=== PATIENT | male | born 1975 | race Two or more races ===

== ENCOUNTER → 2016-10-03 | Outpatient (CLI) | payer MEDICAID | LOC: RAD 13:09 | PROVIDERS: ATTEND Internal Medicine Critical Care Medicine | DX: R05 Cough (principal) | CPT/HCPCS: 71250 ==

== ENCOUNTER → 2017-02-16 | Outpatient (CLI) | payer MEDICAID ==
--- NOTE | 2017-02-16 12:35 | RADIOLOGY REPORT (SQ) ---
EXAM DESCRIPTION: U/S SCROTUM W/DOPPLER COMPLETED DATE/TIME: 02/16/2017 12:13 pm REASON FOR STUDY: SCROTAL MASS N50.9 DISORDER OF MALE GENITAL ORGANS, UNSPECIFIED COMPARISON: Abdominal and pelvic CT scan dated June 2016 TECHNIQUE: Static and realtime haas scale imaging of the scrotum and testes. Selected color Doppler and spectral images recorded to document blood flow. LIMITATIONS: None. FINDINGS: RIGHT: TESTICLE: Normal size. Normal echotexture. Normal blood flow. No mass. EPIDIDYMIS: Normal. HYDROCELE OR VARICOCELE: No. HERNIA OR EXTRA-TESTICULAR MASS: No. OTHER: No other significant finding. LEFT: TESTICLE: Normal size. Normal echotexture. Normal blood flow. No mass. EPIDIDYMIS: Normal. HYDROCELE OR VARICOCELE: A complex multilocular mass is identified superior to the testicle which may represent a complicated hydrocele. This could also be related to the large left inguinal hernia con taining fat identified on the previous CT scan. Other etiologies cannot be completely excluded howev er. HERNIA OR EXTRA-TESTICULAR MASS: No. OTHER: No other significant finding. IMPRESSION: NO EVIDENCE OF TESTICULAR MASS OR TORSION. A complex multiloculated mass is identified superior to the left testicle which may represent a complicated hydrocele. This could also be relate d to the large left inguinal hernia containing fat identified on the previous CT scan. Clinical brian elation is recommended. Other findings as noted above. TECHNICAL DOCUMENTATION: JOB ID: [id number] [employer]- All Rights Reserved
== END ==
LOC: RAD 11:00
PROVIDERS: ATTEND Family Medicine
DX: N50.9 Disorder of male genital organs, unspecified (principal)
CPT/HCPCS: 76870; 93976

== ENCOUNTER 2020-02-21 14:37 | Emergency (ER) | payer MEDICAID ==
--- NOTE | 2020-02-21 15:00 | ER Document Report ---
ED Medical Screen (RME) - General Chief Complaint: Blood Pressure Problem Stated Complaint: BLOOD PRESSURE ISSUES Time Seen by Provider: 02/21/20 14:57 Primary Care Provider: YOBANY RAMIREZ DO [Primary Care Provider] - Follow up as needed Mode of Arrival: Wheelchair Information source: Patient Notes: 44-year-old male presented to ED for elevated blood pressure. He was at cardiac rehab for his 6 way bypass 3 months ago. His blood pressure was elevated in cardiac rehab they sent him to the ER manually on the right arm his blood pressure is 166/102. He states he is not having any headache dizziness or nausea and vomiting. He is alert oriented respirations regular nonlabored at this time. Blood work chest x-ray and EKG have been ordered. I have greeted and performed a rapid initial assessment of this patient. A comprehensive ED assessment and evaluation of the patient, analysis of test results and completion of medical decision making process will be conducted by an additional ED providers. TRAVEL OUTSIDE OF THE [place] IN LAST 30 DAYS: No Physical Exam - Vital signs Vitals: Temp Pulse Resp BP Pulse Ox 98.7 F 79 18 166/100 H 100 02/21/20 14:42 02/21/20 14:42 02/21/20 14:42 02/21/20 14:42 02/21/20 14:42 Course - Vital Signs Vital signs: Temp Pulse Resp BP Pulse Ox 98.7 F 79 18 166/102 H 100 02/21/20 14:42 02/21/20 14:42 02/21/20 14:42 02/21/20 14:58 02/21/20 14:42 Doctor's Discharge - Discharge Referrals: YOBANY RAMIREZ DO [Primary Care Provider] - Follow up as needed
[2020-02-21 15:23] LABS: ABSOLUTE EOSINOPHILS # (AUTO) 0.1 10^3/uL (0.0-0.6); ABSOLUTE LYMPHOCYTES (AUTO) 1.8 10^3/uL (0.5-4.7); ABSOLUTE MONOCYTES (AUTO) 0.2 10^3/uL (0.1-1.4); ABSOLUTE NEUT (AUTO) 1.2 10^3/uL (1.7-8.2); BASOPHILS % (AUTO) 0.4 % (0-2); EOSINOPHILS % (AUTO) 3.4 % (0-6); HEMATOCRIT 39.9 % (37.9-51.0); HEMOGLOBIN 13.5 g/dL (13.5-17.0); LYMPHOCYTES % (AUTO) 53.3 % (13-45); MEAN CORPUSCULAR HEMOGLOBIN 27.9 pg (27.0-33.4); MEAN CORPUSCULAR HGB CONC 33.7 g/dL (32.0-36.0); MEAN CORPUSCULAR VOLUME 83 fl (80-97); MONOCYTES % (AUTO) 7.3 % (3-13); PLATELET COUNT 231 10^3/uL (150-450); RED BLOOD COUNT 4.82 10^6/uL (4.35-5.55); RED CELL DISTRIBUTION WIDTH 17.6 % (11.5-14.0); SEGMENTED NEUTROPHILS % (AUTO) 35.6 % (42-78); TOTAL CELLS COUNTED % (AUTO) 100 %; WHITE BLOOD COUNT 3.3 10^3/uL (4.0-10.5)
--- NOTE | 2020-02-21 15:23 | RADIOLOGY REPORT (SQ) ---
EXAM DESCRIPTION: CHEST 2 VIEWS IMAGES COMPLETED DATE/TIME: 02/21/2020 3:15 pm REASON FOR STUDY: htn 166/[address] COMPARISON: 06/29/2016. EXAM PARAMETERS: NUMBER OF VIEWS: two views TECHNIQUE: Digital Frontal and Lateral radiographic views of the chest acquired. RADIATION DOSE: NA LIMITATIONS: none FINDINGS: LUNGS AND PLEURA: No opacities, masses or pneumothorax. No pleural effusion. MEDIASTINUM AND HILAR STRUCTURES: No masses or contour abnormalities. HEART AND VASCULAR STRUCTURES: Heart normal size. No evidence for failure. BONES: No acute findings. HARDWARE: Sternotomy wires and surgical clips. OTHER: No other significant finding. IMPRESSION: NO ACUTE RADIOGRAPHIC FINDING IN THE CHEST. TECHNICAL DOCUMENTATION: JOB ID: [id number] 2010 [employer]- All Rights Reserved Reading location - IP/workstation name: [email or web address]
[2020-02-21 15:36] LABS: ALBUMIN 4.7 g/dL (3.5-5.0); ALKALINE PHOSPHATASE 85 U/L (38-126); ANION GAP 10 (5-19); ASPARTATE AMINO TRANSFERASE 25 U/L (17-59); BILIRUBIN,TOTAL 0.5 mg/dL (0.2-1.3); BLOOD UREA NITROGEN 13 mg/dL (7-20); CALCIUM 9.4 mg/dL (8.4-10.2); CARBON DIOXIDE 24 mmol/L (22-30); CHLORIDE 106 mmol/L (98-107); CREATINE KINASE 132 U/L (55-170); GLUCOSE 113 mg/dL (75-110); POTASSIUM 3.5 mmol/L (3.6-5.0); TOTAL PROTEIN 7.7 g/dL (6.3-8.2)
[2020-02-21] MEDS ORDERED: LISINOPRIL 10 MG TABLET PO ONE (15:53)
[2020-02-21] MEDS ORDERED: HYDROCHLOROTHIAZIDE 12.5 MG TABLET PO ONE (15:53)
--- NOTE | 2020-02-21 16:30 | ER Document Report ---
Entered by TANYA CALLES SCRIBE 02/21/20 1559 Acting as scribe for:CORINNE ROGEL MD ED Blood Pressure Problem - General Chief Complaint: High Blood Pressure Stated Complaint: BLOOD PRESSURE ISSUES Time Seen by Provider: 02/21/20 14:57 Mode of Arrival: Wheelchair Information source: Patient Notes: This 44 year old male patient s/p 6 vessel bypass on 10/24/2019 presents to the emergency department today from cardiac rehab because of high blood pressure. Patient states that he ran out of his lisinoprilHCTZ about 1 month ago and he did not tell anyone. He last filled a 30-day prescription on 12/24/2019. 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 He reports he takes his metoprolol tartrate 50 mg at 5:00 AM and 5:00 PM. Patient has no complaints. TRAVEL OUTSIDE OF THE [place] IN LAST 30 DAYS: No - Related Data Allergies/Adverse Reactions: metformin Allergy (Verified 02/21/20 14:58) Past Medical History - General Information source: Patient - Social History Smoking Status: Never Smoker Cigarette use (# per day): No Chew tobacco use (# tins/day): No Frequency of alcohol use: None Drug Abuse: None Lives with: Family Family History: Reviewed & Not Pertinent Patient has homicidal ideation: No - Past Medical History Cardiac Medical History: Reports: Hx Coronary Artery Disease, Hx Heart Attack, Hx Hypercholesterolemia, Hx Hypertension Past Surgical History: Reports: Hx Coronary Artery Bypass Graft - six vessel Review of Systems - Review of Systems Constitutional: No symptoms reported EENT: No symptoms reported Cardiovascular: See HPI, Other - elevated blood pressure Respiratory: No symptoms reported Gastrointestinal: No symptoms reported Genitourinary: No symptoms reported Male Genitourinary: No symptoms reported Musculoskeletal: No symptoms reported Skin: No symptoms reported Hematologic/Lymphatic: No symptoms reported Neurological/Psychological: No symptoms reported -: Yes All other systems reviewed and negative Physical Exam - Vital signs Vitals: Temp Pulse Resp BP Pulse Ox 98.7 F 79 18 166/100 H 100 02/21/20 14:42 02/21/20 14:42 02/21/20 14:42 02/21/20 14:42 02/21/20 14:42 - Notes Notes: Physical Exam: General: Alert, appears well. HEENT: Normocephalic. Atraumatic. PERRL. Extraocular movements intact. Oropharynx clear. Neck: Supple. Non-tender. Respiratory: No respiratory distress. Clear and equal breath sounds bilaterally. Cardiovascular: Regular rate and rhythm. Abdominal: Normal Inspection. Non-tender. No distension. Normal Bowel Sounds. Back: No gross abnormalities. Extremities: Moves all four extremities. Upper extremities: Normal inspection. Normal ROM. Lower extremities: Normal inspection. No edema. Normal ROM. Neurological: Normal cognition. AAOx4. Normal speech. Psychological: Normal affect. Normal Mood. Skin: Newly healed mid-line sternotomy scar consistent with recent CABG. Course - Vital Signs Vital signs: Temp Pulse Resp BP Pulse Ox 98.7 F 79 23 H 133/86 H 100 02/21/20 14:42 02/21/20 14:42 02/21/20 18:01 02/21/20 18:01 02/21/20 18:01 - Laboratory Result Diagrams: 02/21/20 15:05 02/21/20 15:05 Laboratory results interpreted by me: 02/21/20 02/21/20 15:05 15:05 WBC 3.3 L RDW 17.6 H Lymph % (Auto) 53.3 H Absolute Neuts (auto) 1.2 L Seg Neutrophils % 35.6 L Potassium 3.5 L Glucose 113 H - Diagnostic Test Radiology reviewed: Image reviewed, Reports reviewed - Chest x-ray shows old CABG, no acute changes. - EKG Interpretation by Ia EKG shows normal: Sinus rhythm, [place], Intervals, ST-T Waves. abnormal: QRS Complexes - Old inferior ME Rate: Normal - 74 Rhythm: NSR P Waves: LAE Discharge - Discharge Clinical Impression: Has run out of medications High blood pressure Qualifiers: Hypertension type: essential hypertension Qualified Code(s): I10 - Essential (primary) hypertension Condition: Stable Disposition: HOME, SELF-CARE Additional Instructions: Start taking the Lisinopril-HCTZ as prescribed tomorrow. You received today's dose here in the emergency room. Check your blood pressure every day to be sure it is remaining under control. Follow-up with your primary care provider next week for recheck to be sure your blood pressure is good, and that you do not run out of your medications again. RETURN TO THE EMERGENCY ROOM IF ANY NEW OR WORSENING SYMPTOMS. Prescriptions: Lisinopril/Hydrochlorothiazide [Lisinopril-Hctz 10-12.5 mg Tab] 1 each PO DAILY #30 tablet I personally performed the services described in the documentation, reviewed and edited the documentation which was dictated to the scribe in my presence, and it accurately records my words and actions.
[2020-02-21] MEDS ORDERED: HYDRALAZINE HCL 50 MG TABLET PO ONE (17:17)
[2020-02-21] MEDS ORDERED: METOPROLOL TARTRATE 50 MG TABLET PO ONE (17:17)
[2020-02-21 18:22] VITALS: BP 133/86
--- NOTE | 2020-02-22 10:18 | EKG REPORT ---
SEVERITY:- ABNORMAL ECG - SINUS RHYTHM PROBABLE LEFT ATRIAL ABNORMALITY INFERIOR INFARCT, AGE INDETERMINATE : Confirmed by: Solange Mosquera 22-Feb-2020 10:17:41
== END 2020-02-21 19:02 | disposition home or self-care (01) ==
LOC: ER 14:37
DX: Z76.0 Encounter for issue of repeat prescription (principal); I10 Essential (primary) hypertension; Z79.899 Other long term (current) drug therapy
CPT/HCPCS: 93005; 99284; 36415; 82550; 85025; 80053; 84484; 71046; 93010; J3490 ×3

== ENCOUNTER 2020-05-05 19:10 | Emergency (ER) | payer MEDICAID ==
--- NOTE | 2020-05-05 20:42 | ER Document Report ---
ED Medical Screen (RME) - General Chief Complaint: Ear Pain Stated Complaint: RIGHT EAR PAIN Time Seen by Provider: 05/05/20 20:32 Primary Care Provider: YOBANY RAMIREZ DO [Primary Care Provider] - Follow up as needed Mode of Arrival: Ambulatory Information source: Patient Notes: 44-year-old male presented to ED for complaint of pain to the right ear. He also has pain in front and behind the ear. He states it is been for several days. He was treated for dental infection on the left on 09 April. He states this is completely on the other side. It is been for several days. He has been using [id number] pain drops for the ear with no relief. I have greeted and performed a rapid initial assessment of this patient. A comprehensive ED assessment and evaluation of the patient, analysis of test results and completion of medical decision making process will be conducted by an additional ED providers. TRAVEL OUTSIDE OF THE [place] IN LAST 30 DAYS: No - Related Data Allergies/Adverse Reactions: metformin Allergy (Verified 02/21/20 14:58) Past Medical History - Past Medical History Cardiac Medical History: Reports: Hx Coronary Artery Disease, Hx Heart Attack, Hx Hypercholesterolemia, Hx Hypertension Past Surgical History: Reports: Hx Coronary Artery Bypass Graft - six vessel Physical Exam - Vital signs Vitals: Temp Pulse Resp BP Pulse Ox 98.3 F 80 16 139/78 H 99 05/05/20 19:17 05/05/20 19:17 05/05/20 19:17 05/05/20 19:17 05/05/20 19:17 Course - Vital Signs Vital signs: Temp Pulse Resp BP Pulse Ox 98.3 F 80 16 139/78 H 99 05/05/20 19:17 05/05/20 19:17 05/05/20 19:17 05/05/20 19:17 05/05/20 19:17 Doctor's Discharge - Discharge Referrals: YOBANY RAMIREZ DO [Primary Care Provider] - Follow up as needed
[2020-05-05] MEDS ORDERED: CLINDAMYCIN 600 MG/D5W RTU 600 MG/50 ML RTUPB IV ONE (20:43)
[2020-05-05 21:23] LABS: ABSOLUTE EOSINOPHILS # (AUTO) 0.1 10^3/uL (0.0-0.6); ABSOLUTE LYMPHOCYTES (AUTO) 2.8 10^3/uL (0.5-4.7); ABSOLUTE MONOCYTES (AUTO) 0.3 10^3/uL (0.1-1.4); ABSOLUTE NEUT (AUTO) 2.2 10^3/uL (1.7-8.2); BASOPHILS % (AUTO) 0.5 % (0-2); EOSINOPHILS % (AUTO) 1.9 % (0-6); HEMATOCRIT 44.3 % (37.9-51.0); HEMOGLOBIN 15.6 g/dL (13.5-17.0); MEAN CORPUSCULAR HEMOGLOBIN 29.9 pg (27.0-33.4); MEAN CORPUSCULAR HGB CONC 35.3 g/dL (32.0-36.0); MEAN CORPUSCULAR VOLUME 85 fl (80-97); MONOCYTES % (AUTO) 6.1 % (3-13); PLATELET COUNT 296 10^3/uL (150-450); RED BLOOD COUNT 5.23 10^6/uL (4.35-5.55); RED CELL DISTRIBUTION WIDTH 13.9 % (11.5-14.0); SEGMENTED NEUTROPHILS % (AUTO) 40.5 % (42-78); TOTAL CELLS COUNTED % (AUTO) 100 %; WHITE BLOOD COUNT 5.5 10^3/uL (4.0-10.5)
[2020-05-05 21:43] LABS: ALBUMIN 5.1 g/dL (3.5-5.0); ALKALINE PHOSPHATASE 84 U/L (38-126); ANION GAP 14 (5-19); ASPARTATE AMINO TRANSFERASE 23 U/L (17-59); BILIRUBIN,DIRECT 0.2 mg/dL (0.0-0.4); BILIRUBIN,TOTAL 0.5 mg/dL (0.2-1.3); BLOOD UREA NITROGEN 15 mg/dL (7-20); CALCIUM 10.2 mg/dL (8.4-10.2); CARBON DIOXIDE 26 mmol/L (22-30); CHLORIDE 102 mmol/L (98-107); GLUCOSE 96 mg/dL (75-110); TOTAL PROTEIN 8.5 g/dL (6.3-8.2)
[2020-05-05] MEDS ORDERED: IBUPROFEN 800 MG TABLET PO ONE (23:32)
[2020-05-06] MEDS ORDERED: CLINDAMYCIN 600 MG/D5W RTU 600 MG/50 ML RTUPB IV ONE (01:45)
[2020-05-06] MEDS ORDERED: HYDROCODONE/ACETAMINOPHEN 5-325 MG TABLET PO ONE (01:57)
[2020-05-06] MEDS ORDERED: ONDANSETRON HCL INJ/PF 4 MG/2 ML SDV IV ONE (02:00)
[2020-05-06] MEDS ORDERED: MORPHINE SULFATE 10 MG/ML INJ IV ONE (02:00)
--- NOTE | 2020-05-06 02:02 | ER Document Report ---
Doctor's Note Notes: 05/06/20 02:01 Was called to triage to see patient who is requesting pain medication. Patient is awaiting results from a CT soft tissue neck to rule out mastoiditis. Patient is moaning in pain. He is alert and oriented x3. Answers questions appropriately. Vital signs are stable. Labs are within normal limits. Patient states he has a ride home. Will give IV morphine, IV Zofran, awaiting remaining test results.
--- NOTE | 2020-05-06 02:21 | RADIOLOGY REPORT (SQ) ---
EXAM: CT Neck With Intravenous Contrast EXAM DATE/TIME: 05/05/2020 20:38 CLINICAL HISTORY: The patient is 44 years old and is Male; right ear mastoid pain. RECENT DENTAL INFECTION, BYPASS 10/17. CREAT 0.99 TECHNIQUE: Axial computed tomography images of the neck with intravenous contrast. Sagittal and coronal reformatted images were created and reviewed. This CT exam was performed using one or more of the following dose reduction techniques: automated exposure control, adjustment of the mA and/or kV according to patient size, and/or use of iterative reconstruction technique. COMPARISON: No relevant prior studies available. FINDINGS: OROPHARYNX: Unremarkable. No significant tonsillar enlargement. No peritonsillar abscess. HYPOPHARYNX: Unremarkable. LARYNX: Unremarkable. Normal epiglottis. TRACHEA: Unremarkable. RETROPHARYNGEAL SPACE: Unremarkable. SUBMANDIBULAR/PAROTID GLANDS: Unremarkable. Glands are normal in size. THYROID: Unremarkable. BONES/JOINTS: No osseous erosion. No acute fracture. SOFT TISSUES: There is suggestion of minimal stranding within the right periauricular soft tissues. No abscess. VASCULATURE: No acute findings. LYMPH NODES: No significant lymph node enlargement. SINUSES: Paranasal sinuses are clear. MASTOID AIR CELLS: Mastoid air cells are clear bilaterally. AUDITORY SYSTEM: There is mild soft tissue thickening along the lateral aspect of the right external auditory canal, suggesting otitis externa. Bilateral middle ear cavities are clear. DENTAL: There has been recent removal of the left 2nd mandibular molar. LUNG APICES: Unremarkable as visualized. IMPRESSION: Mild right-sided otitis externa. There minimal stranding within the adjacent periauricular soft tissues. No abscess. No mastoiditis.
--- NOTE | 2020-05-06 04:59 | ER Document Report ---
ED ENT - General Chief Complaint: Ear Pain Stated Complaint: RIGHT EAR PAIN Time Seen by Provider: 05/05/20 20:32 Primary Care Provider: YOBANY RAMIREZ DO [NO LOCAL MD] - Follow up as needed ADDIE DUONG MD [ACTIVE STAFF] - Follow up as needed Mode of Arrival: Ambulatory Information source: Patient Notes: 44-year-old male presents to the emergency room complaining of right outer ear pain for the past 3 days. States it feels swollen and itches. He denies any t rauma or injury. No fevers. Not taking any medications for his symptoms. Denies any recent swimming or flying. TRAVEL OUTSIDE OF THE [place] IN LAST 30 DAYS: No - Related Data Allergies/Adverse Reactions: metformin Allergy (Verified 02/21/20 14:58) Past Medical History - General Information source: Patient - Social History Smoking Status: Former Smoker Frequency of alcohol use: None Drug Abuse: None Family History: Reviewed & Not Pertinent - Past Medical History Cardiac Medical History: Reports: Hx Coronary Artery Disease, Hx Heart Attack, Hx Hypercholesterolemia, Hx Hypertension Past Surgical History: Reports: Hx Coronary Artery Bypass Graft - six vessel Review of Systems - Review of Systems Constitutional: No symptoms reported EENT: Ear pain Cardiovascular: No symptoms reported Respiratory: No symptoms reported Musculoskeletal: No symptoms reported Skin: No symptoms reported Neurological/Psychological: No symptoms reported -: Yes All other systems reviewed and negative Physical Exam - Vital signs Vitals: Temp Pulse Resp BP Pulse Ox 98.3 F 80 16 139/78 H 99 05/05/20 19:17 05/05/20 19:17 05/05/20 19:17 05/05/20 19:17 05/05/20 19:17 - General General appearance: Appears well, Alert In distress: Mild - HEENT Head: Normocephalic Eyes: Normal Conjunctiva: Normal Ears: Normal, Other - Nontender to palpation over the right mastoid. External canal: Erythema - Right outer ear canal with erythema and swelling. No active discharge or draining noted. Tympanic membrane is intact. Left outer ear canal without erythema or swelling. Left tympanic membrane intact, Swollen Tympanic membrane: Normal Sinus: Normal Nasal: Normal Pharynx: Normal Neck: Normal. No: Lymphadenopathy - Respiratory Respiratory status: No respiratory distress Chest status: Nontender Breath sounds: Normal Chest palpation: Normal - Cardiovascular Rhythm: Regular Heart sounds: Normal auscultation Murmur: No - Neurological Neuro grossly intact: Yes Cognition: Normal Orientation: AAOx4 [place] Coma Scale Eye Opening: Spontaneous Javier Coma Scale Verbal: Oriented Javier Coma Scale Motor: Obeys Commands [place] Coma Scale Total: 15 Speech: Normal Motor strength normal: LUE, RUE, LLE, RLE Sensory: Normal - Skin Skin Temperature: Warm Skin Moisture: Dry Skin Color: Normal Course - Re-evaluation Re-evalutation: 05/06/20 04:54 Patient is resting comfortably he is currently pain-free. Reviewed all lab and CAT scan results with patient. Counseled on diagnosis. Use eardrops as prescribed. Tylenol and/or Motrin for pain. Outpatient follow-up with ENT if not improving in 2 to 3 days. On-call physician was provided. Patient was given strict return to the emergency room guidelines. Return for any new or worsening symptoms. All questions were answered. Patient verbalized understanding and agrees with plan of care. - Vital Signs Vital signs: Temp Pulse Resp BP Pulse Ox 98.2 F 72 16 140/91 H 100 05/06/20 05:00 05/06/20 05:00 05/06/20 05:00 05/06/20 05:00 05/06/20 05:00 - Laboratory Result Diagrams: 05/05/20 21:01 05/05/20 21:01 Laboratory results interpreted by me: 05/05/20 05/05/20 21:01 21:01 Lymph % (Auto) 51.0 H Seg Neutrophils % 40.5 L Total Protein 8.5 H Albumin 5.1 H Discharge - Discharge Clinical Impression: Right otitis externa Qualifiers: Otitis externa type: unspecified type Chronicity: acute Qualified Code(s): H60.501 - Unspecified acute noninfective otitis externa, right ear Condition: Stable Disposition: HOME, SELF-CARE Instructions: Use of Ear Drops ([facility]), Otitis Externa ([facility]) Additional Instructions: Use eardrops as prescribed. Outpatient follow-up with ENT if not improving in 2 to 3 days. Tylenol and/or Motrin as needed for pain. Return to the emergency room for any new or worsening symptoms. Prescriptions: Neomy Sulf/Polymyx B Sulf/Hc [Cortisporin Otic Susp] 4 drop RT_EAR TID #1 bottle Referrals: YOBANY RAMIREZ DO [NO LOCAL MD] - Follow up as needed ADDIE DUONG MD [ACTIVE STAFF] - Follow up as needed
[2020-05-06 07:21] VITALS: BP 140/91
== END 2020-05-06 05:00 | disposition home or self-care (01) ==
LOC: ER 19:10
DX: H60.501 Unspecified acute noninfective otitis externa, right ear (principal); H92.01 Otalgia, right ear; E78.00 Pure hypercholesterolemia, unspecified; I10 Essential (primary) hypertension; I25.10 Atherosclerotic heart disease of native coronary artery without angina pectoris; I25.2 Old myocardial infarction; Z95.1 Presence of aortocoronary bypass graft
CPT/HCPCS: 99285; 96375; 96365; 36415; 87040; 85025; 80053; 70491; S0077; J3490; J2270

== ENCOUNTER 2020-06-29 18:09 | Emergency (ER) | payer MEDICAID ==
--- NOTE | 2020-06-29 18:46 | ER Document Report ---
ED Medical Screen (RME) - General Chief Complaint: Back Pain Stated Complaint: CHEST PAIN Time Seen by Provider: 06/29/20 18:39 Notes: Patient presents complaining of left flank pain for the past 3 days. Patient now complains of bilateral shoulder pain and some chest pressure as well. Patient does report some shortness of breath. Patient denies any fever, nausea vomiting or diarrhea. Patient denies any urinary symptoms. Patient does have a history of hypertension, CAD and CABG x6. I have greeted and performed a rapid initial assessment of this patient. A comprehensive ED assessment and evaluation of the patient, analysis of test results and completion of the medical decision making process will be conducted by additional ED providers. TRAVEL OUTSIDE OF THE [place] IN LAST 30 DAYS: No - Related Data Allergies/Adverse Reactions: metformin Allergy (Verified 02/21/20 14:58) Past Medical History - Social History Frequency of alcohol use: None - Past Medical History Cardiac Medical History: Reports: Hx Coronary Artery Disease, Hx Heart Attack, Hx Hypercholesterolemia, Hx Hypertension Past Surgical History: Reports: Hx Coronary Artery Bypass Graft - six vessel Physical Exam - Vital signs Vitals: Temp Pulse Resp BP Pulse Ox 98.6 F 90 16 129/86 H 98 06/29/20 18:20 06/29/20 18:20 06/29/20 18:20 06/29/20 18:20 06/29/20 18:20 - Respiratory Respiratory status: No respiratory distress Chest status: Tender Breath sounds: Normal Course - Vital Signs Vital signs: Temp Pulse Resp BP Pulse Ox 98.6 F 90 16 129/86 H 98 06/29/20 18:20 06/29/20 18:20 06/29/20 18:20 06/29/20 18:20 06/29/20 18:20
--- NOTE | 2020-06-29 19:27 | RADIOLOGY REPORT (SQ) ---
EXAM DESCRIPTION: CHEST SINGLE VIEW IMAGES COMPLETED DATE/TIME: 06/29/2020 7:16 pm REASON FOR STUDY: kelby salazar COMPARISON: 02/21/2020 EXAM PARAMETERS: NUMBER OF VIEWS: One view. TECHNIQUE: Single frontal radiographic view of the chest acquired. RADIATION DOSE: NA LIMITATIONS: None. FINDINGS: LUNGS AND PLEURA: No opacities, masses or pneumothorax. No pleural effusion. MEDIASTINUM AND HILAR STRUCTURES: No masses. Contour normal. HEART AND VASCULAR STRUCTURES: Heart normal in size. Normal vasculature. BONES: No acute findings. HARDWARE: Sternotomy wires. OTHER: No other significant finding. IMPRESSION: NO ACUTE RADIOGRAPHIC FINDING IN THE CHEST. TECHNICAL DOCUMENTATION: JOB ID: [id number] 2010 [employer]- All Rights Reserved Reading location - IP/workstation name: [email or web address]
[2020-06-29 19:31] LABS: ABSOLUTE EOSINOPHILS # (AUTO) 0.1 10^3/uL (0.0-0.6); ABSOLUTE LYMPHOCYTES (AUTO) 2.4 10^3/uL (0.5-4.7); ABSOLUTE MONOCYTES (AUTO) 0.4 10^3/uL (0.1-1.4); ABSOLUTE NEUT (AUTO) 3.4 10^3/uL (1.7-8.2); BASOPHILS % (AUTO) 0.4 % (0-2); EOSINOPHILS % (AUTO) 1.7 % (0-6); HEMOGLOBIN 13.8 g/dL (13.5-17.0); LYMPHOCYTES % (AUTO) 37.4 % (13-45); MEAN CORPUSCULAR HGB CONC 33.7 g/dL (32.0-36.0); MEAN CORPUSCULAR VOLUME 86 fl (80-97); MONOCYTES % (AUTO) 6.8 % (3-13); PLATELET COUNT 273 10^3/uL (150-450); RED BLOOD COUNT 4.75 10^6/uL (4.35-5.55); SEGMENTED NEUTROPHILS % (AUTO) 53.7 % (42-78); TOTAL CELLS COUNTED % (AUTO) 100 %; WHITE BLOOD COUNT 6.3 10^3/uL (4.0-10.5)
[2020-06-29 19:33] LABS: APPEARANCE,URINE CLEAR; BILIRUBIN,URINE NEGATIVE (NEGATIVE); COLOR,URINE YELLOW; GLUCOSE, URINE NEGATIVE (NEGATIVE); KETONES,URINE NEGATIVE (NEGATIVE); LEUKOCYTE ESTERASE,URINE NEGATIVE (NEGATIVE); NITRITE,URINE NEGATIVE (NEGATIVE); PROTEIN,URINE NEGATIVE (NEGATIVE); UROBILINOGEN,URINE NEGATIVE mg/dL (<2.0)
[2020-06-29 19:40] LABS: ALKALINE PHOSPHATASE 78 U/L (38-126); ANION GAP 15 (5-19); ASPARTATE AMINO TRANSFERASE 21 U/L (17-59); BILIRUBIN,DIRECT 0.2 mg/dL (0.0-0.4); BILIRUBIN,TOTAL 0.5 mg/dL (0.2-1.3); BLOOD UREA NITROGEN 19 mg/dL (7-20); CALCIUM 9.5 mg/dL (8.4-10.2); CARBON DIOXIDE 25 mmol/L (22-30); CHLORIDE 98 mmol/L (98-107); GLUCOSE 95 mg/dL (75-110); POTASSIUM 3.9 mmol/L (3.6-5.0)
--- NOTE | 2020-06-29 19:45 | EKG REPORT ---
SEVERITY:- ABNORMAL ECG - SINUS TACHYCARDIA VENTRICULAR PREMATURE COMPLEX PROBABLE LEFT ATRIAL ABNORMALITY INFERIOR INFARCT, AGE INDETERMINATE : Confirmed by: Juan Jose Foster MD 29-Jun-2020 19:44:35
[2020-06-29 19:57] LABS: NT PRO BNP 82 pg/mL (<125); TROPONIN I < 0.012 ng/mL
[2020-06-29] MEDS ORDERED: KETOROLAC TROMETHAMINE 60 MG/2 ML SDV IM ONE (23:14)
--- NOTE | 2020-06-29 23:31 | ER Document Report ---
Entered by PAVAN JEAN-BAPTISTE SCRIBE 06/29/20 1100 Acting as scribe for:FIDEL MENDEZ, ED General - General Chief Complaint: Back Pain Stated Complaint: CHEST PAIN Time Seen by Provider: 06/29/20 18:39 Primary Care Provider: NAYELI QUEEN PA-C [Primary Care Provider] - Follow up as needed Information source: Patient Notes: This 44 year old male patient presents to the emergency department today with complaints of sharp left lower back pain for the past x3 days. Patient also reports bilateral anterior shoulder pain with heaviness to his chest and shortness of breath. Patient reports history of HTN, HLD, [place], CAD, CABG, and obstructive sleep apnea. Patient reports bypass surgery x8 months ago at [facility], stopped smoking, and has not been able to sleep without CPAP since his surgery. Denies exposure to anyone sick. Patient reports a back injury in 2017 without surgery. TRAVEL OUTSIDE OF THE [place] IN LAST 30 DAYS: No - Related Data Allergies/Adverse Reactions: metformin Allergy (Verified 06/29/20 20:12) Past Medical History - General Information source: Patient - Social History Smoking Status: Former Smoker Cigarette use (# per day): No Frequency of alcohol use: None Family History: Reviewed & Not Pertinent - Past Medical History Cardiac Medical History: Reports: Hx Coronary Artery Disease, Hx Heart Attack, Hx Hypercholesterolemia, Hx Hypertension Pulmonary Medical History: Reports: Hx Sleep Apnea Past Surgical History: Reports: Hx Coronary Artery Bypass Graft - six vessel Review of Systems - Review of Systems Constitutional: No symptoms reported EENT: No symptoms reported Cardiovascular: See HPI, Other - chest is heavy Respiratory: See HPI, Short of breath Gastrointestinal: No symptoms reported Genitourinary: No symptoms reported Male Genitourinary: No symptoms reported Musculoskeletal: See HPI, Back pain - left lower back, Other - bilateral shoulder pain Skin: No symptoms reported Hematologic/Lymphatic: No symptoms reported Neurological/Psychological: No symptoms reported -: Yes All other systems reviewed and negative Physical Exam - Vital signs Vitals: Temp Pulse Resp BP Pulse Ox 98.6 F 90 16 129/86 H 98 06/29/20 18:20 06/29/20 18:20 06/29/20 18:20 06/29/20 18:20 06/29/20 18:20 - General General appearance: Appears well, Alert - HEENT Head: Normocephalic, Atraumatic Eyes: Normal Pupils: PERRL - Respiratory Respiratory status: No respiratory distress Chest status: Nontender Breath sounds: Normal Chest palpation: Normal - Cardiovascular Rhythm: Regular Heart sounds: Normal auscultation Murmur: No - Abdominal Inspection: Obese Distension: No distension Bowel sounds: Normal Tenderness: Nontender - Back Notes: Tenderness with palpation to the lumber region of the left lower back. - Extremities General upper extremity: Normal inspection. No: Edema General lower extremity: Normal inspection. No: Edema Notes: Tenderness with palpation to bilateral anterior shoulders. - Neurological Neuro grossly intact: Yes Cognition: Normal Orientation: AAOx4 Mobile Coma Scale Eye Opening: Spontaneous Javier Coma Scale Verbal: Oriented Mobile Coma Scale Motor: Obeys Commands Mobile Coma Scale Total: 15 Speech: Normal Sensory: Normal - Psychological Associated symptoms: Normal affect, Normal mood - Skin Skin Temperature: Warm Skin Moisture: Dry Skin Color: Normal Course - Vital Signs Vital signs: Temp Pulse Resp BP Pulse Ox 98.6 F 90 16 129/86 H 100 06/29/20 18:20 06/29/20 18:20 06/29/20 18:20 06/29/20 18:20 06/29/20 18:44 - Laboratory Result Diagrams: 06/29/20 19:00 06/29/20 19:00 Laboratory results interpreted by me: 06/29/20 19:00 D-Dimer 1.03 H Discharge - Discharge Clinical Impression: Shoulder pain, bilateral Qualifiers: Chronicity: acute Qualified Code(s): M25.511 - Pain in right shoulder; M25.512 - Pain in left shoulder Back pain Qualifiers: Back pain location: low back pain Chronicity: acute Back pain laterality: left Sciatica presence: without sciatica Qualified Code(s): M54.5 - Low back pain Condition: Stable Disposition: HOME, SELF-CARE Instructions: Chest Pain of Unclear Cause ([facility]), Chest Wall Pain ([facility]), Ice Packs ([facility]), Muscle Strain ([facility]), Warm Packs ([facility]) Additional Instructions: See your doctor in follow up. Use ice and alternate ice and heat to your back. Please return here for chest pain or shortness of breath. Take your medicine as directed for pain. Your medicine was sent to [facility]. Referrals: NAYELI QUEEN PA-C [Primary Care Provider] - Follow up as needed I personally performed the services described in the documentation, reviewed and edited the documentation which was dictated to the scribe in my presence, and it accurately records my words and actions.
--- NOTE | 2020-06-30 01:23 | RADIOLOGY REPORT (SQ) ---
CT angiogram chest, abdomen and pelvis with contrast on 06/30/2020 at 12:42 AM CLINICAL INDICATION: Chest pain, left-sided back pain that radiates down left leg, congestion TECHNIQUE: Multiple axial images are obtained throughout the chest, abdomen and pelvis following the administration of IV contrast. Computer generated 3D reconstructions/MIPS were performed. This exam was performed according to our departmental dose-optimization program, which includes automated exposure control, adjustment of the mA and/or kV according to patient size and/or use of iterative reconstruction technique. Total DLP is 2671.1 mGy*cm. COMPARISON: CT chest from 10/03/2016 FINDINGS: CHEST: The patient is status post median sternotomy and CABG. Coronary artery calcifications and other vascular calcifications are noted. There is a very small right pleural effusion. There is no left pleural effusion or pericardial effusion. There is no thoracic adenopathy. There is no thoracic aortic aneurysm or dissection. There is minimal bilateral dependent atelectasis. The lungs are otherwise clear. No acute bony abnormality of the thorax is noted. There are three great vessels originating off the aortic arch without stenosis of the proximal great vessels. ABDOMEN: The solid abdominal organs are unremarkable. The celiac, SMA and IRON are patent without significant stenosis. There are two left renal arteries and a single right renal artery without significant renal artery stenosis. There is no abdominal aortic aneurysm or dissection. There is no abdominal adenopathy. There is no free fluid or free air within the abdomen. The abdominal portion of the GI tract is unremarkable. Pelvis: There is no free fluid in the pelvis. There is no pelvic adenopathy. No iliac or proximal femoral arterial disease is noted. Pelvic portion of the GI tract including the appendix is unremarkable. Degenerative changes are noted in the spine. IMPRESSION: 1. No evidence of thoracic or abdominal aortic aneurysm or dissection. 2. Very small right pleural effusion. 3. Otherwise no acute abnormality.
[2020-06-30 02:17] VITALS: BP 124/74
== END 2020-06-30 02:19 | disposition home or self-care (01) ==
LOC: ER 18:09
DX: M54.5 Low back pain (principal); M25.511 Pain in right shoulder; M25.512 Pain in left shoulder; J90 Pleural effusion, not elsewhere classified; R06.02 Shortness of breath; R09.89 Other specified symptoms and signs involving the circulatory and respiratory systems; I25.10 Atherosclerotic heart disease of native coronary artery without angina pectoris; I10 Essential (primary) hypertension; I25.2 Old myocardial infarction; Z95.1 Presence of aortocoronary bypass graft; G47.33 Obstructive sleep apnea (adult) (pediatric); Z99.89 Dependence on other enabling machines and devices; Z87.891 Personal history of nicotine dependence; Z88.8 Allergy status to other drugs, medicaments and biological substances
CPT/HCPCS: 93005; 99285; 96372; 36415; 83735; 85025; 80053; 81001; 84484; 85379; 83880; 71045; 71275; 74174; 93010; J1885